=== PATIENT | female | born 2000 | race Caucasian/White ===

== ENCOUNTER 2020-08-18 01:42 | Inpatient (IN) | payer OTHER ==
[~2020-08-18] VITALS: Ht 170.2 cm; Wt 86.4 kg
--- NOTE | 2020-08-18 02:55 | NUR ---
IV ATTEMPTS X 2 WITHOUT SUCCESS. PATIENT STATES UNABLE TO URINATE AT THIS TIME
[2020-08-18 02:56] LABS: HEMATOCRIT 37.4 % (36.0-48.0); HEMOGLOBIN 12.3 g/dL (12-16); MCH 29.1 pg (26.0-34.0); MCHC 32.9 g/dL (31.0-37.0); MCV 88.4 fL (80.0-100.0); MEAN PLATELET VOLUME 9.4 fL (7.4-10.4); PLATELET COUNT 221 10x3/uL (130-400); RBC 4.23 10x6/uL (4.00-5.40); RDW 14.5 % (11.5-14.5); WBC 21.7 10x3/uL (4.8-10.8)
[2020-08-18 03:00] LABS: CALC OSMOLALITY 263 mosm/kg (275-300); CALCIUM 8.6 mg/dL (8.5-10.1); CARBON DIOXIDE 24.1 mmol/L (21.0-32.0); CHLORIDE - SERUM 100 mmol/L (98-107); CREATININE - SERUM 0.9 mg/dL (0.6-1.3); GLUCOSE 79 mg/dL (74-106); POTASSIUM - SERUM 3.6 mmol/L (3.5-5.1); SODIUM 132 mmol/L (136-145); UREA NITROGEN 12 mg/dL (7-18); eGFR NON AFRICAN AMERICAN 83 mL/min (90-120)
[2020-08-18 03:13] LABS: BASOPHILS 1 % (0-2); EOSINOPHILS 1 % (0-7); LYMPHOCYTES 13 % (15-50); MONOCYTES 9 % (2-11); NEUTROPHILS 76 % (40-80); PLATELET ESTIMATE NORMAL
[2020-08-18 03:14] LABS: ALBUMIN 2.9 g/dL (3.4-5.0); ALKALINE PHOSPHATASE 75 U/L (30-120); ALT (SGPT) 119 U/L (10-68); BILIRUBIN - TOTAL 0.52 mg/dL (0.2-1.3); CKMB 0.3 U/L (0.0-3.6); CREATINE KINASE 47 UL (21-215); PROTEIN - SERUM 6.8 g/dL (6.4-8.2)
[2020-08-18 03:20] LABS: TROPONIN-I < 0.017 ng/mL (0.000-0.060)
[2020-08-18 03:33] LABS: HCG SERUM NEGATIVE (NEGATIVE)
--- NOTE | 2020-08-18 03:39 | NUR ---
NOW HAS IV AND FLUIDS INFUSING. PT STATES CAN'T GO URINATE RIGHT NOW. WILL TRY AGAIN SHORTLY. HAS URINE CUP AT BEDSIDE. WATER TO PATIENT WELL.
[2020-08-18 03:59] VITALS: BP 110/68
[2020-08-18 04:27] LABS: BILIRUBIN NEGATIVE (NEGATIVE); KETONE LARGE mg/dL (NEGATIVE); NITRITE NEGATIVE (NEGATIVE); UROBILINOGEN NORMAL mg/dL (< 2)
[2020-08-18 04:33] LABS: WHITE CELLS - URINE 25-50 HPF (0-4)
[2020-08-18 04:34] LABS: BACTERIA FEW HPF (NONE SEEN); UDS - AMPHET POSITIVE QUAL (NEGATIVE); UDS - BARB NEGATIVE QUAL (NEGATIVE); UDS - BENZO POSITIVE QUAL (NEGATIVE); UDS - COCAINE NEGATIVE QUAL (NEGATIVE); UDS - OPIATE NEGATIVE QUAL (NEGATIVE); UDS - PCP NEGATIVE QUAL (NEGATIVE); UDS - THC POSITIVE QUAL (NEGATIVE)
--- NOTE | 2020-08-18 04:56 | NUR ---
TYLENOL GIVEN FOR TEMP OF 101.7 TYMPANIC.
[2020-08-18 07:00] VITALS: BP 132/60
--- NOTE | 2020-08-18 07:09 | NUR ---
COVID SWAB IN LAB FOR UNIVERSAL SWAB FOR ADMISSION.
--- NOTE | 2020-08-18 09:07 | NUR ---
PT UP TO RESTROOM WITHOUT DIFFICULTY AT THIS TIME.
--- NOTE | 2020-08-18 09:08 | NUR ---
SECURITIES SUPERVISOR AT BEDSIDE ROUNDING ON PATIENT AT THIS TIME.
--- NOTE | 2020-08-18 10:49 | NUR ---
PT C/O PAIN RATES 07/08, PAIN MED GIVEN PER ORDERS
[2020-08-18 12:00] VITALS: BP 115/63
[2020-08-18 16:30] VITALS: BP 103/67
--- NOTE | 2020-08-18 17:27 | NUR ---
arrives to unit per w/c, alert and o, iv to r hand sl
[2020-08-18 17:40] VITALS: Ht 170.2 cm; Wt 86.4 kg
[2020-08-18 18:01] VITALS: BP 107/69
--- NOTE | 2020-08-18 18:36 | NUR ---
PT DENIES ANY HOME MEDS BUT THEN STATES THAT SHE HAD AN RX RECENT FOR GEODON BUT SHE STOPPED TAKING IT DUE TO SIDE EFFECTS
[2020-08-18 20:00] VITALS: BP 106/45
--- NOTE | 2020-08-18 20:00 | NUR ---
AWAKE,ALERT,NO COMPLAINTS AT PRESENT. IV TO LEFT HAND INTACT WITHOUT REDNESS OR EDEMA NOTED. UP AD JUAN FRANCISCO IN ROOM. CL IN REACH
--- NOTE | 2020-08-18 23:30 | NUR ---
IV PUMP BEEPING. WHEN CHECKED BY THIS NURSE,CLAMP HAD BEEN TURNED OFF. QUESTIONED PATIENT TO WHY IV WAS CLAMPED. STATES" OH,I MUST HAVE DONE THAT BECAUSE IT WAS BEEPING". EXPLAINED TO PATIENT SHE COULD NOT CLAMP IV OFF. THIS WAS SECOND TIME THIS NURSE HAD FOUND IV CLAMPED. PATIENT STATES SHES "SORRY SHE JUST FORGOT YO UNCLAM IT ECAUSE SHE HAD WENT TO BATHROOM. INSTRUCTED PATIENT TO CALL NURSE IF IV WAS BEEPING AND WE WOULD COME FIX IT. BOYFRIEND AT BEDSIDE. CL IN REACH
[2020-08-19] VITALS: BP 116/59
--- NOTE | 2020-08-19 00:11 | NUR ---
I have reviewed this patient and I concur with the Shift Assessment completed by the Licensed Practical Nurse today this shift.
--- NOTE | 2020-08-19 03:10 | NUR ---
IV BEEPING. UPON ENTERING ROOM FOUND ROOM EMPTY. IV TUBING DRAPED ARCROSS IV PUMP. PATIENT NOT FOUND ON UNIT. ER STATED SHE SAW PATIENT AND BOYFRIEND GO OUTSIDE.THIS NURSE WENT OUTSIDE DOORS AND LOOKED AROUND FOR PATIENT. DID NOT SEE PATIENT OR BOYFRIEND AROUND FRONT OF BUILDING. SECURITY NOTIFIED TO SEARCH PARKING LOT FOR PATIENT.
[2020-08-19 04:00] VITALS: BP 89/58
--- NOTE | 2020-08-19 04:05 | NUR ---
PATIENT AND BOYFRIEND RETURNED TO ROOM. PATIENT STATED THEY JUST WENT OUTSIDE AND SAT IN THE CAR TO SMOKE A CIGARETTE.EXPLAINED TO PATIENT SHE COULD NOT LEAVE FLOOR AND IT COULD CAUSE THE IV TO GO BAD IF SHE KEPT TURNING IT OFF AND DISCONNETING IT. PATIENT STATED SHE DID NOT KNOW AND WOULD CALL NEXT TIME.
[2020-08-19 07:07] LABS: CALC OSMOLALITY 268 mosm/kg (275-300); CALCIUM 8.2 mg/dL (8.5-10.1); CARBON DIOXIDE 23.8 mmol/L (21.0-32.0); CHLORIDE - SERUM 101 mmol/L (98-107); CREATININE - SERUM 0.8 mg/dL (0.6-1.3); GLUCOSE 119 mg/dL (74-106); PHOSPHOROUS 2.7 mg/dL (2.5-4.9); POTASSIUM - SERUM 3.3 mmol/L (3.5-5.1); SODIUM 135 mmol/L (136-145); UREA NITROGEN 6 mg/dL (7-18); eGFR NON AFRICAN AMERICAN > 90 mL/min (90-120)
[2020-08-19 07:17] LABS: BASOPHILS 0.1 % (0-2); HEMATOCRIT 33.5 % (36.0-48.0); HEMOGLOBIN 10.8 g/dL (12-16); IMMATURE GRANULOCYTES 0.5 % (0-5); LYMPHOCYTES 15.9 % (15-50); MCH 28.3 pg (26.0-34.0); MCHC 32.2 g/dL (31.0-37.0); MCV 87.7 fL (80.0-100.0); MEAN PLATELET VOLUME 10.1 fL (7.4-10.4); MONOCYTES 12.5 % (2-11); PLATELET COUNT 233 10x3/uL (130-400); RBC 3.82 10x6/uL (4.00-5.40); RDW 14.6 % (11.5-14.5)
[2020-08-19 07:25] LABS: WBC 13.8 10x3/uL (4.8-10.8)
[2020-08-19 08:25] VITALS: BP 97/63
--- NOTE | 2020-08-19 09:56 | NUR ---
PT ASKING TO LEAVE. EXPLAINED DISCHARGE ORDERS HAVE NOT BEEN RECEIVED YET. SHE SAID SHE WAS LEAVING ANYWAY BECAUSE SHE HAD TO HANDLE ARRANGEMENTS FOR HER LITTLE BROTHER THAT WEDNESDAY. DAYNE CRUZ NOTIFIED. SAID TO LET HER SIGN AMA PAPERS. PT SIGNED AMA PAPERS AND HER AND HER BOYFRIEND WALKED OUT. NO ACUTE DISTRESS WAS NOTED.
== END 2020-08-19 11:42 | disposition left against medical advice (07) | DRG 690 ==
LOC: D.ER 01:42 → D.EDHOLD 05:34 → D.MS 05:34
PROVIDERS: Family Medicine; ADMIT Emergency Medicine; ATTEND Emergency Medicine
DX: N12 Tubulo-interstitial nephritis, not specified as acute or chronic (principal); N39.0 Urinary tract infection, site not specified; D72.829 Elevated white blood cell count, unspecified; F15.10 Other stimulant abuse, uncomplicated